=== PATIENT | male | born 1940 | race Caucasian/White ===

== ENCOUNTER → 2016-08-15 | Outpatient (CLI) | payer MEDICARE, BC | END | disposition home or self-care (01) | LOC: PCVCCLINIC 14:23 | PROVIDERS: ATTEND Internal Medicine | DX: I48.0 Paroxysmal atrial fibrillation (principal); I10 Essential (primary) hypertension; E78.5 Hyperlipidemia, unspecified; Z95.0 Presence of cardiac pacemaker | CPT/HCPCS: 80061; 93005; G0463 ==

== ENCOUNTER → 2017-08-20 | Outpatient (CLI) | payer MEDICARE, BC | END | disposition home or self-care (01) | LOC: PCVCCLINIC 10:19 | DX: I48.0 Paroxysmal atrial fibrillation (principal); E78.5 Hyperlipidemia, unspecified; I10 Essential (primary) hypertension; G47.33 Obstructive sleep apnea (adult) (pediatric); Z95.0 Presence of cardiac pacemaker; Z87.891 Personal history of nicotine dependence; Z79.899 Other long term (current) drug therapy | CPT/HCPCS: 80061; 93005; G0463 ==

== ENCOUNTER → 2018-09-02 | Outpatient (CLI) | payer MEDICARE, BC | END | disposition home or self-care (01) | LOC: PCVCCLINIC 15:59 | PROVIDERS: ATTEND Internal Medicine | DX: I48.0 Paroxysmal atrial fibrillation (principal); I10 Essential (primary) hypertension; E78.5 Hyperlipidemia, unspecified; G47.33 Obstructive sleep apnea (adult) (pediatric); K21.9 Gastro-esophageal reflux disease without esophagitis; Z95.0 Presence of cardiac pacemaker | CPT/HCPCS: 36415; 80061; 93005; 93280; G0463 ==

== ENCOUNTER → 2018-09-08 | Outpatient (CLI) | payer MEDICARE, BC ==
--- NOTE | 2018-09-08 16:33 | PCVCIMAG ---
APPROVED REPORT Study performed: 09/08/2018 14:30:36 EXAM: Comprehensive 2D, Doppler, and color-flow Echocardiogram Patient Location: Echo lab Status: routine BSA: 2.47 HR: 80 bpmBP: 138/68 mmHg Rhythm: Atrial Fibrillation Other Information Study Quality: Adequate Indications Atrial Fibrillation Pacemaker 2D Dimensions IVSd: 18.07 (7-11mm) LVDd: 51.27 mm PWd: 17.89 (7-11mm)Ascending Ao: 40.28 (22-36mm) LVDs: 39.17 (25-40mm) Left Atrium: 54.22 (27-40mm) Aortic Root: 37.48 mm LV Single Plane 4CH: 59.43 % LV Single Plane 2CH: 49.88 % Biplane EF: 54.8 % Volumes Left Atrial Volume (Systole) Single Plane 4CH: 123.57 mLSingle Plane 2CH: 108.50 mL LA ESV Index: 48.00 mL/m2 Aortic Valve AoV Peak Gorge.: 1.85 m/s AO Peak Gr.: 13.70 mmHgLVOT Max P.83 mmHg LVOT Max V: 0.84 m/s Mitral Valve E/A Ratio: 0.7 MV Decel. Time: 253.76 ms MV E Max Gorge.: 0.44 m/s MV A Gorge.: 0.65 m/s IVRT: 121.11 ms Pulmonary Valve PV Peak Gorge.: 1.21 m/sPV Peak Gr.: 5.95 mmHg Tricuspid Valve TR Peak Gorge.: 2.64 m/s TR Peak Gr.: 28.11 mmHg Left Ventricle The left ventricle is normal size. There is normal LV segmental wall motion. Moderate to severe concentric left ventricular hypertrophy. Left ventricular systolic function is normal. The left ventricular ejection fraction is within the normal range. LVEF is 55-60%. Mild diastolic dysfunction is present (impaired relaxation pattern). Right Ventricle The right ventricle is normal size. The right ventricular systolic function is normal. Atria Left atrium is moderate-severely dilated. Right atrium is mildly dilated. Aortic Valve The aortic valve is normal in structure. No aortic regurgitation is present. There is no aortic valvular stenosis. Mitral Valve The mitral valve is normal in structure. Trace mitral regurgitation. No evidence of mitral valve stenosis. Tricuspid Valve The tricuspid valve is normal in structure. Mild tricuspid regurgitation with PAP of 35 mmHg. Pulmonic Valve The pulmonary valve is normal in structure. Mild to moderate pulmonic regurgitation. Great Vessels The aortic root is normal in size. 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 IVC is normal in size and collapses >50% with inspiration. Pericardium There is no pericardial effusion. There is no pleural effusion. <Conclusion> Left ventricular systolic function is normal. There is normal LV segmental wall motion. LVEF is 55-60%. Mild diastolic dysfunction The aortic valve is normal in structure. No aortic regurgitation or stenosis. The mitral valve is normal in structure. Trace mitral regurgitation. Mild tricuspid regurgitation with pulmonary artery pressure of 35 mmHg. There is no pericardial effusion.
== END | disposition home or self-care (01) ==
LOC: PCVCIMAG 14:34
PROVIDERS: ATTEND Internal Medicine
DX: I07.1 Rheumatic tricuspid insufficiency (principal); I48.91 Unspecified atrial fibrillation
CPT/HCPCS: 93306

== ENCOUNTER → 2019-03-17 | Outpatient (CLI) | payer MEDICARE, BC | END | disposition home or self-care (01) | LOC: PCVCCLINIC 15:37 | PROVIDERS: ATTEND Internal Medicine | DX: I48.0 Paroxysmal atrial fibrillation (principal); I10 Essential (primary) hypertension; E78.5 Hyperlipidemia, unspecified; G47.33 Obstructive sleep apnea (adult) (pediatric); R94.31 Abnormal electrocardiogram [ECG] [EKG]; K21.9 Gastro-esophageal reflux disease without esophagitis; E66.9 Obesity, unspecified; Z95.1 Presence of aortocoronary bypass graft; Z87.891 Personal history of nicotine dependence; Z88.1 Allergy status to other antibiotic agents; Z95.0 Presence of cardiac pacemaker; Z79.899 Other long term (current) drug therapy | CPT/HCPCS: 36415; 80061; 93005; G0463; 85610; 93280 ==